=== PATIENT | male | born 1950 | race Caucasian/White ===

== ENCOUNTER → 2025-02-26 | Day surgery (SDC) | payer MEDICARE, OTHER ==
[2025-02-25 12:01] LABS: MEAN PLATELET VOLUME 11.4 FL (7.4-10.4); RED CELL DISTRIBUTION WIDTH 15.0 % (11.5-14.5)
[2025-02-25 12:06] LABS: CREATININE 1.22 MG/DL (0.60-1.10); TOTAL CARBON DIOXIDE 29.5 MMOL/L (24-32); eGFR 58 ML/MIN
[2025-02-25 12:11] LABS: APTT 27 SECONDS (22-32); INR 1.2 INR
[2025-02-25 12:19] LABS: GIANT PLATELET FEW; LARGE PLATELETS FEW; PLATELET ESTIMATE NORMAL
[~2025-02-26] VITALS: Ht 182.9 cm; Wt 84.0 kg
[2025-02-26] VITALS (10 sets, daily range): BP systolic 93–133; BP diastolic 60–75; PULSE 60; RESP 10–19; O2SAT 95–98
[~2025-02-26] MED LIST: ACYC-129 PO; ATOR20TA PO; CEPH-585 PO; CETI10CA PO; LEVO125T PO; LIDOcaine 1% W/epiNEPHrine 1:100,000 20ml vial ONE; OMEP40CA21 PO; PHO667C PO; TURM500C4 PO; fentaNYL/PF 50MCG/1 ML 2ML syringe ONE; midazolam 1 mg/ML 2ml injection ONE
--- NOTE | 2025-02-26 06:42 | ELECTROCARDIOGRAPH REPORT ---
[facility] Test Date: 2025-02-26 Test Time: 06:38:18 Pat Name: MICHAEL MILLER Department: [facility] Patient ID: [facility]-[id number] Room: Gender: M Animal Pathologist: DONAL : 1950 Requested By: SUNDEEP HANEY Order Number: [id number] Reading MD: Dr. CODY Haney Measurements Intervals Welcome Rate: 45 P: 53 PA: 149 QRS: 46 QRSD: 103 T: 47 QT: 477 QTc: 413 Interpretive Statements Sinus bradycardia Baseline wander in lead(s) V5 Electronically Signed On 02-26-2025 19:48:[address] CODY Haney Please click the below link to view image of tracing.
[2025-02-26] MEDS: ceFAZolin 2gm/dext,iso 50mL 50 ML IV ONE (10:48)
[2025-02-26] MEDS: HYDROcodone/acetaminophen 10/325mg tab PO PRN (11:17)
--- NOTE | 2025-02-26 11:44 | CARDIOLOGY REPORT ---
DATE OF SERVICE: 02/26/2025 DICTATING PHYSICIAN: CODY Ventura MD PERMANENT PACEMAKER IMPLANTATION REPORT DATE OF PROCEDURE: 02/26/2025 GENDER: Male. AGE: 74. PRIMARY PHYSICIAN: Dr Conte CARDIOLOGY: CODY Ventura MD INDICATION: The patient is a 74-year-old male with history of diabetes, hyperlipidemia, sleep apnea, shortness of breath, bradycardia, episodes of tiredness and fatigue and dizziness. The patient in the last couple of years has been having persistent bradycardia and has been managed medically. He also has a runs of SVT. Event monitor on showed a lowest heart rate of 42 and episodes of SVT. The patient has been having tiredness, fatigue, increasing exertional fatigue, and episodes of dizzy spell. After discussing risks, benefits, alternative options, the patient prefers to proceed with permanent pacemaker implantation. Risks, benefits, and alternative options were discussed, informed consent obtained. SURGEON: CODY Ventura MD, FACC [employer] SURGEON: None. ANESTHESIOLOGIST: None. ANESTHESIA: Conscious sedation with Local anesthesia. COMPLICATIONS: None. ESTIMATED BLOOD LOSS: Less than 5 mL. PREPROCEDURE DIAGNOSIS: Sick sinus syndrome with symptomatic bradycardia. POSTPROCEDURE DIAGNOSIS: Sick sinus syndrome with symptomatic bradycardia. PROCEDURES DONE: * Fluoroscopy. * AV sequential pacemaker implantation. * Conscious sedation 60 minutes. DESCRIPTION OF PROCEDURE: Left infraclavicular area was prepped and draped in the usual fashion. Two separate accesses of the left subclavian vein using micropuncture technique. A horizontal incision placed in the left infraclavicular area. Using blunt dissection and blunt electrocautery, the subcutaneous prepectoral pacemaker pocket was fashioned. External ends of J-wires retrieved into the pacemaker pocket. Two 7-English sheaths were advanced over the J-wires. Through one of them, RV lead advanced to the RV apex, screwed into the RV apex. Appropriate pacing and sensory thresholds were obtained. The sheath removed by peel-away technique and lead anchored to the subcutaneous tissue with an Ethibond . Through the second 7-English sheath, the atrial lead was advanced to the right atrium. A J-wire was formed and screwed into the right atrial appendage. Appropriate pacing and sensing thresholds were obtained. Sheath was removed by peel-away technique. The lead was anchored to the subcutaneous tissue with Ethibond. The pocket was irrigated with copious antibiotic solution. The leads were connected to the appropriate sockets of the pulse generator. Set screws were tightened. TUG test performed. Pacemaker was suspended in the pacemaker pocket. Pocket closed with continuous 0 Vicryl followed by interrupted 0 Vicryl. A third layer of interrupted 2-0 Vicryl was applied. Skin approximated with porfirio. TECHNICAL INFORMATION: Device used: MRI compatible and Swipe.totronic Sweetie MRI pacemaker, model number [id number], serial number [id number], [employer], 02/26/2025, left pectoral location. Right atrial lead: Model number 4076, 52 cm long, and serial number [id number], [employer], 02/26/2025, right atrial appendage. P-wave amplitude was 0.8 millivolts. Pacing threshold 0.5 V at 0.4 milliseconds. RV lead: Model number 5076, 58 cm long, serial number [id number], [employer], 02/26/2025, RV apex. R-wave amplitude 8.9 millivolts, 684 ohms of impedance. Pacing threshold 0.5 V at 0.4 ms. IMPRESSION: A 74-year-old male with sick sinus syndrome with symptomatic tachy-queenie episode, underwent successful AV sequential pacemaker implantation with no complications. CODY Ventura MD TID: [id number] RECEIPT: [id number] [facility]ENTER[facility]
[2025-02-26] MEDS: vancomycin/NS 1 GM ADD-VANTAGE 250 ML IV ONE (12:23)
--- NOTE | 2025-02-26 13:01 | RADIOLOGY REPORT ---
DI CHEST,TWO VIEWS, CATH PACEMAKER CLINICAL HISTORY: s/p pacemaker COMPARISON: None TECHNIQUE: Frontal and lateral view of the chest was obtained FINDINGS: Lines and Tubes: Dual lead left-sided pacemaker. Surgical porfirio overlying the left upper chest. No pneumothorax. Lungs: No focal consolidation. Pleura: No effusion. No pneumothorax. Cardiomediastinal contours: Unremarkable Bones: No acute osseous abnormality. IMPRESSION: No acute cardiopulmonary disease.
== END | disposition home or self-care (01) ==
LOC: SSTAY O 06:10
PROVIDERS: ATTEND Internal Medicine Cardiovascular Disease
DX: I49.5 Sick sinus syndrome (principal); R00.1 Bradycardia, unspecified; R53.83 Other fatigue; E11.9 Type 2 diabetes mellitus without complications; E78.5 Hyperlipidemia, unspecified; G47.33 Obstructive sleep apnea (adult) (pediatric); K21.9 Gastro-esophageal reflux disease without esophagitis; R79.1 Abnormal coagulation profile; E03.9 Hypothyroidism, unspecified; Z98.890 Other specified postprocedural states; Z86.19 Personal history of other infectious and parasitic diseases; Z79.899 Other long term (current) drug therapy; Z82.49 Family history of ischemic heart disease and other diseases of the circulatory system; Z83.3 Family history of diabetes mellitus; Z81.8 Family history of other mental and behavioral disorders
CPT/HCPCS: 33208; 36415; 71046; 80048; 85008; 85025; 85610; 85730; 93005; 99152; 99153; A4565; A6402; C1785; C1898; J0690; J1200; J2250; J3010; J3373; J3490; J7030; Z7610; A6449